=== PATIENT | female | born 2005 | race Caucasian/White ===

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

== ENCOUNTER 2024-11-06 15:02 | Emergency (ER) | payer OTHER, BC ==
[~2024-11-06] VITALS: Ht 160 cm; Wt 81.7 kg
[2024-11-06 15:12] VITALS: BP 143/92
[2024-11-06] MEDS ORDERED: Rabies Immune Globulin 150 IU / ML 2ML Vial IM ONE (17:35)
[2024-11-06] MEDS ORDERED: Rabies Vaccine (Pcec)/Pf 1 mL 2.5 Unit Kit IM ONE (17:35)
[2024-11-06] MEDS ORDERED: Rabies Immune Globulin/Pf 300 Unit/ML 1ML Vial IM ONE (17:55)
== END 2024-11-06 19:05 | disposition home or self-care (01) ==
LOC: ER 15:02
DX: Z29.14 Encounter for prophylactic rabies immune globulin (principal); Z20.3 Contact with and (suspected) exposure to rabies; Z88.8 Allergy status to other drugs, medicaments and biological substances
CPT/HCPCS: 90375; 90376